=== PATIENT | female | born 1985 | race Caucasian/White ===

== ENCOUNTER → 2018-05-19 13:46 | Outpatient (CLI) | payer BC, SELFPAY ==
[2018-05-19 14:28] LABS: Add Manual Diff / Slide Review NO; Basophils Absolute Auto 0 /uL (0-100); Basophils Percent Auto 0.2 % (0-2); Eosinophils Absolute Auto 0 /uL (0-450); Eosinophils Percent Auto 0.4 % (2-4); Hematocrit 39.7 % (36-46); Hemoglobin 13.7 g/dL (12.0-16.0); Lymphocytes Absolute Auto 1600 /uL (1100-4500); Lymphocytes Percent Auto 17.1 % (25-40); Mean Corpuscular HGB Conc 34.4 % (30-36); Mean Corpuscular Hemoglobin 31.4 PG (26-34); Mean Corpuscular Volume 91.3 fL (80-100); Monocytes Absolute Auto 500 /uL (0-900); Monocytes Percent Auto 5.5 % (3-14); Neutrophils Absolute Auto 7400 /uL (1500-7000); Neutrophils Percent Auto 76.8 % (50-75); Platelet Count 301 X10^3/uL (150-400); Red Blood Cell Count 4.35 X10^6/uL (4.0-5.2); Red Cell Distribution Width 14.5 % (11.6-14.8); White Blood Cell Count 9.6 X10^3/uL (4.5-11.0)
[2018-05-19 17:05] LABS: Appearance Urine UA CLEAR; Bilirubin Urine UA NEGATIVE (NEGATIVE); Color Urine UA YELLOW; Glucose Urine UA NEGATIVE (Negative); Ketones Urine UA NEGATIVE (NEGATIVE); Leukocyte Esterase Urine UA NEGATIVE (NEGATIVE); Nitrite Urine UA NEGATIVE (Negative); Occult Blood Urine UA NEGATIVE (Negative); Protein Urine UA NEGATIVE (Negative); Specific Gravity Urine UA <=1.005 (1.000-1.035); Urobilinogen Urine UA 0.2 E.U./dL (0.2); pH Urine UA 6.5 (4.5-8.0)
[2018-05-19 17:55] LABS: Hepatitis B Surface Antigen NEGATIVE s/c (NEGATIVE); Rubella Antibody IgG 42.2 IU/mL (>15)
[2018-05-19 18:12] LABS: HIV 1 and 2 Antibody NEGATIVE (NEGATIVE); Hep C Virus Ab w/Reflex Quant NEGATIVE s/c (NEGATIVE)
[2018-05-21 15:33] LABS: RPR Screen Nonreactive (Nonreactive)
[2018-05-23 21:06] LABS: Brief History NTD NO; Calc Gestational Age 18.1; Cigarette Smoker NO; Donated Egg NG; Donor Egg Age NG; Inhibin A, Dimeric 150 pg/mL; Maternal Weight 160 lbs; Number of Fetuses NG; Previous Pregnancy Down Syndro NG; hCG, MoM 1.54
== END ==
PROVIDERS: PCP Registered Nurse; Visit Provider Obstetrics & Gynecology
DX: Z34.82 Encounter for supervision of other normal pregnancy, second trimester (principal); Z3A.18 18 weeks gestation of pregnancy
CPT/HCPCS: 36415; 80055; 81003; 82105; 82677; 84702; 86336; 86703; 86787; 86803; 86850; 86900; 86901; 87086

== ENCOUNTER → 2018-05-30 07:42 | Outpatient (CLI) | payer BC, SELFPAY ==
--- NOTE | 2018-05-30 07:43 | DI.US.S_ITS ---
PROCEDURE: US OB >= 14 WEEKS FETUS INDICATIONS: Anatomy Survey OUTSIDE/PRIOR DATING DATA: Last menstrual period (LMP): 01/12/18. LMP-based estimated date of delivery (ADRIANA): 10/19/18. First dating scan (date and location): Dr. Underwood's office, 03/15/18. Estimated date of delivery (ADRIANA) from first dating scan: 10/19/18. TECHNIQUE: Real-time scanning was performed of the fetus, with image documentation and biometric measurements. COMPARISON: [facility], , OB >= 14 WEEKS FETUS, 05/19/2018, 13:28. [facility], , OB <= 14 WEEKS FETUS, 03/15/2018, 16:14. FINDINGS: General: A single live intrauterine gestation is present. Presentation: Vertex. Placenta: Placental position is anterior, without previa. Amniotic fluid index: Not measured, but within normal limits by visual inspection heart rate: 150 beats per minute. Maternal cervical canal: 3.6 cm cm long. Normal lower limit is 2.5 cm. biometrics: Biparietal diameter: 4.7 cm equals 20 weeks 1 day Head circumference: 17.2 cm equals 19 weeks 6 days Abdominal circumference: 15.4 cm equals 20 weeks 4 days Femur length: 3.2 cm equals 19 weeks 6 days Estimated gestational age from initial scan: 19 weeks 5 days Composite gestational age from present scan: 20 weeks 1 day Estimated weight and percentile: 338 g, 73rd percentile Measurement variability for biometric dating: +/- 7 days from 14 weeks to 15 weeks 6 days gestation, +/- 10 days from 16 weeks to 21 weeks 6 days gestation, +/- 2 weeks from 22 weeks to 27 weeks 6 days gestation, +/- 3 weeks for 28 weeks gestation or later. weight reference: 4500 g or EFW >90/95% is considered macrosomia or large for gestational age. EFW <10% is small for gestational age. EFW 5% or less is considered intra-uterine growth restriction. Anatomic survey: Neuro: Ventricles are non-dilated at less than 10 mm. Cisterna magna is normal at 3-11 mm. Cerebellum is normal in size and morphology. Nuchal skin fold: Normal at less than 6 mm between 14-21 weeks gestational age. Face: Nose and lips appear normal. The facial profile is well seen. Spine: No evidence for spina bifida. Heart: 4-chambered heart is present, with normal ventricular outflow tracts. Diaphragm: Diaphragm is intact. Stomach: Left-sided stomach is present. Kidneys: No hydronephrosis. Normal is less than 5 mm in 2nd trimester, less than 7 mm in 3rd trimester. Cord: 3-vessel cord has orthotopic insertion. Bladder: Normal in size. Extremities: All 4 extremities identified. IMPRESSION: Normal interval growth when compared to the prior ultrasound examination. The facial profile is not well-seen. No anatomic abnormalities are identified. Dictated by: Sam Steward M.D. on 05/30/2018 at 8:44 Approved by: Sam Steward M.D. on 05/30/2018 at 8:48
== END ==
PROVIDERS: PCP Registered Nurse; Visit Provider Obstetrics & Gynecology
DX: Z34.82 Encounter for supervision of other normal pregnancy, second trimester (principal); Z3A.20 20 weeks gestation of pregnancy
CPT/HCPCS: 76811

== ENCOUNTER → 2018-07-19 10:13 | Outpatient (CLI) | payer BC, SELFPAY ==
[2018-07-19 11:53] LABS: Hematocrit 38.6 % (36-46); Hemoglobin 13.5 g/dL (12.0-16.0)
[2018-07-19 12:17] LABS: GTT (PREG) 1 Hour PP 50gm Dose 98 mg/dL (76-139)
== END ==
PROVIDERS: PCP Registered Nurse; Visit Provider Obstetrics & Gynecology
DX: Z34.82 Encounter for supervision of other normal pregnancy, second trimester (principal)
CPT/HCPCS: 36415; 82950; 85014; 85018

== ENCOUNTER → 2018-09-14 14:30 | Outpatient (CLI) | payer BC, SELFPAY ==
[2018-09-15 13:32] LABS: Strep Grp B PCR NEG for Grp B Strep
== END ==
PROVIDERS: PCP Registered Nurse; Visit Provider Obstetrics & Gynecology
DX: Z34.83 Encounter for supervision of other normal pregnancy, third trimester (principal)
CPT/HCPCS: 87653

== ENCOUNTER 2018-09-29 16:43 | Outpatient (CLI) | payer BC, SELFPAY | END 2018-09-29 17:31 | disposition home or self-care (01) | LOC: OB 09-30 12:44 | PROVIDERS: PCP Registered Nurse; Visit Provider Obstetrics & Gynecology | DX: O36.8130 Decreased fetal movements, third trimester, not applicable or unspecified (principal); Z3A.37 37 weeks gestation of pregnancy; R10.2 Pelvic and perineal pain | CPT/HCPCS: 59025; G0378; G0379 ==

== ENCOUNTER 2018-10-07 17:20 | Outpatient (CLI) | payer BC, SELFPAY ==
--- NOTE | 2018-10-08 11:01 | PM.OBTRLD ---
Visit Information Visit Information Date of evaluation: 10/07/18 Primary OB Provider: Tere Underwood On-call OB Provider: Mimi Goodson Reason for Evaluation: Yes rule out labor Vital Signs Vital Signs: Blood pressure 118/79, pulse 88, temperature 36.3? [facility] Medical History (Updated 10/08/18 @ 11:05 by Mimi Goodson MD) Abnormal Pap smear of cervix (Chronic) Anxiety (Chronic 2002) Asthma (Chronic) Depression (Chronic ~1997) Heavy menstrual period (Chronic) Ovarian cyst (Chronic) Painful menstrual periods (Chronic) Surgical History (Updated 11/18/17 @ 14:33 by Fabby Brown) H/O LEEP (Resolved 03/01/15) History of loop electrosurgical excision procedure (LEEP) (Resolved 06/18/17) History of loop electrosurgical excision procedure (LEEP) (Resolved 03/01/15) [place] teeth removed (Resolved ~2007) Family History (Updated 11/18/17 @ 14:24 by Fabby Brown) Father Age: 63 Environmental allergies Grandmother Age: 81 Hypertension High cholesterol Mother Age: 58 Obesity Hypertension Sister Age: 28 Environmental allergies Ovarian cyst Sister Age: 33 Ovarian cyst Back pain Social History household members: spouse Smoking Status: Never smoker Social History household members: spouse Smoking Status: Never smoker Evaluation Evaluation Baseline heart rate: 125 Variability: Moderate (11-25) monitor accelerations: Present monitor decelerations: Absent Contraction Frequency (minutes): 7 Uterine Contraction Intensity: Mild Category of Tracing: I Cervical dilation (cm): 5 Diagnosis, Plan/Disposition Final Diagnosis (1) 38 weeks gestation of : Current Visit: No Status: Acute Plan/Disposition Plan: Patient with no significant contractions on the monitor and no change in cervix. Prodromal labor. Follow-up but routine OB appointment or return if contractions increase. OB Disposition: home
== END 2018-10-07 18:04 | disposition home or self-care (01) ==
LOC: OB 10-11 13:44
PROVIDERS: PCP Registered Nurse; Visit Provider Registered Nurse
DX: O47.1 False labor at or after 37 completed weeks of gestation (principal); Z3A.38 38 weeks gestation of pregnancy
CPT/HCPCS: 59025; G0378; G0379

== ENCOUNTER 2018-10-18 07:36 | Inpatient (IN) | payer BC, SELFPAY ==
[2018-10-18] MEDS: LACTATED RINGERS 1,000 ML 100 ML IV (08:00)
[2018-10-18 08:41] LABS: Add Manual Diff / Slide Review NO; Basophils Absolute Auto 0 /uL (0-100); Basophils Percent Auto 0.3 % (0-2); Eosinophils Absolute Auto 100 /uL (0-450); Eosinophils Percent Auto 0.8 % (2-4); Hematocrit 39.7 % (36-46); Hemoglobin 13.5 g/dL (12.0-16.0); Lymphocytes Absolute Auto 1800 /uL (1100-4500); Lymphocytes Percent Auto 15.5 % (25-40); Mean Corpuscular HGB Conc 34.1 % (30-36); Monocytes Absolute Auto 800 /uL (0-900); Monocytes Percent Auto 7.1 % (3-14); Neutrophils Absolute Auto 8700 /uL (1500-7000); Neutrophils Percent Auto 76.3 % (50-75); Platelet Count 332 X10^3/uL (150-400); Red Blood Cell Count 4.51 X10^6/uL (4.0-5.2); Red Cell Distribution Width 13.6 % (11.6-14.8); White Blood Cell Count 11.4 X10^3/uL (4.5-11.0)
[2018-10-18 09:12] VITALS: BP 111/70
[2018-10-18] MEDS: OXYTOCIN PREMIX 30 UNIT/500 ML PLAST..BAG IV (11:18)
--- NOTE | 2018-10-18 17:40 | PM.OBPRVD ---
Labor & Delivery Delivery date: 10/18/18 Intrapartal events: None Cervical ripening method: none Induction method: AROM Delivery augmentation: pitocin Delivery monitor: external FHT and external uterine Route of delivery: Episiotomy description: None L&D Laceration Description: None Estimated blood loss (mL): 100 Anesthesia type: Epidural Complications: None Narrative: The patient was complete and pushed with 5 contractions. At 4:22 p.m., a live female delivered spontaneously over an intact perineum. No nuchal cord. The remainder of the body delivered without difficulty and was placed on mom's abdomen. The cord was double clamped and cut. Cord bloods were obtained. Pitocin was given in the IV fluids. The placenta delivered intact with a 3 vessel cord at 4:27 p.m.. The fundus was massaged to firm. Estimated blood loss 100 cc. No lacerations. Apgars 9 at 1 min and 9 at 5 min. weight 8 lb 5.8 oz. Epidural analgesia. Mom and stable to recovery. Plan for aftercare: Routine care
--- NOTE | 2018-10-18 20:36 | P.HPOB_ITS ---
OB HPI Date/Time Date of admission: 10/18/18 Date Patient Seen: 10/18/18 Time Patient Seen: 07:45 History of Present Condition Chief complaint: OBS : 3 Para: 1 Estimated Date of Delivery: 10/19/18 Estimated Gestational Age (weeks): 39+ 6 Narrative: Harriett Jimenez is a 32 year old female 3 para 1 who presents for induction of labor Indications Indication for induction OB: maternal discomfort History of Present care: good care, initiated at week # (8), number of visits (11) and pounds weight gain (36) Dating criteria: LMP confirmed by 1st trimester US Ultrasounds: normal 1st trimester US and normal mid trimester US Obstetrical complications: none Medical complications: other (History of LEEP) Preadmission Labs Blood type: O (+) positive -: Antibody screen: negative, GBS status: negative, HBsAG: negative, HIV: negative and RPR/VDLR: negative -: Chlamydia screen: not detected and Gonorrhea screen: not detected -: Rubella: immune and Varicella: immune HCT: 38.6 HCAB: negative PAP: Abnormal Quad screen: Normal Urine: Negative 1 hr GTT: 98 Prior (ies) History: EAB Vacuum assisted vaginal delivery in 2017 without complication Evaluation Evaluation Baseline heart rate: 135 Variability: Moderate (11-25) monitor accelerations: Present monitor decelerations: Absent Category of Tracing: I Cervical dilation (cm): 5 Cervical effacement (%): 85 station: -1 Laboratory results: Laboratory Tests 10/18/18 10/18/18 08:20 08:20 WBC 11.4 H RBC 4.51 Hgb 13.5 Hct 39.7 MCV 88.0 MCH 30.0 MCHC 34.1 RDW 13.6 Plt Count 332 Neut % (Auto) 76.3 H Lymph % (Auto) 15.5 L [place] % (Auto) 7.1 Eos % (Auto) 0.8 L Baso % (Auto) 0.3 Neut # (Auto) 8700 H Lymph # (Auto) 1800 [place] # (Auto) 800 Eos # (Auto) 100 Baso # (Auto) 0 Blood Type O Positive Antibody Screen Negative [facility] Medical History (Updated 10/08/18 @ 11:05 by Mimi Goodson MD) Abnormal Pap smear of cervix (Chronic) Anxiety (Chronic 2002) Asthma (Chronic) Depression (Chronic ~1997) Heavy menstrual period (Chronic) Ovarian cyst (Chronic) Painful menstrual periods (Chronic) Surgical History (Updated 11/18/17 @ 14:33 by Fabby Brown) H/O LEEP (Resolved 03/01/15) History of loop electrosurgical excision procedure (LEEP) (Resolved 06/18/17) History of loop electrosurgical excision procedure (LEEP) (Resolved 03/01/15) [place] teeth removed (Resolved ~2007) Family History (Updated 11/18/17 @ 14:24 by Fabby Brown) Father Age: 63 Environmental allergies Grandmother Age: 81 Hypertension High cholesterol Mother Age: 58 Obesity Hypertension Sister Age: 28 Environmental allergies Ovarian cyst Sister Age: 33 Ovarian cyst Back pain Social History household members: spouse Smoking Status: Never smoker Social History household members: spouse Smoking Status: Never smoker Meds Home Medications and Allergies Home Medications Medication Instructions Recorded Confirmed Type PNV cmb#95-ferrous fumarate-FA 1 mg PO DAILY 06/18/17 04/12/18 History [] Allergies Allergy/AdvReac Type Severity Reaction Status Date / Time No Known Drug Allergies Allergy Verified 04/12/18 09:38 Exam Vital Signs (past 8 hours): Generally: Patient in no acute distress Lungs: Clear to auscultation bilaterally Cardiovascular: Regular rate and rhythm Fundal height: 41 cm Estimated weight: 8 lb Extremities: Negative Homans, no edema Objective Labs Result Diagrams: 10/18/18 08:20 Labs: Laboratory Results - last 24 hr 10/18/18 10/18/18 08:20 08:20 WBC 11.4 H RBC 4.51 Hgb 13.5 Hct 39.7 MCV 88.0 MCH 30.0 MCHC 34.1 RDW 13.6 Plt Count 332 Neut % (Auto) 76.3 H Lymph % (Auto) 15.5 L [place] % (Auto) 7.1 Eos % (Auto) 0.8 L Baso % (Auto) 0.3 Neut # (Auto) 8700 H Lymph # (Auto) 1800 [place] # (Auto) 800 Eos # (Auto) 100 Baso # (Auto) 0 Blood Type O Positive Antibody Screen Negative Assessment and Plan Assessment and Plan Assessment and Plan narrative: Assessment: 32-year-old 3 para 1 at 39-,6/7 weeks gestation with advanced cervical dilation for induction of labor Plan: AROM with copious amounts of clear amniotic fluid Pitocin augmentation as needed Epidural as necessary Expected management to spontaneous vaginal delivery Time Spent with Patient Total time spent with greater than 50% in coordination of care (as documented) at patient's floor/unit and/or counseling patient:: 15-24 minutes
[2018-10-18] MEDS: LANOLIN OINT 7 GM 1 APPLIC TOP (22:32)
[2018-10-18] MEDS: IBUPROFEN 600 MG TABLET PO (22:32)
[2018-10-18 23:27] VITALS: TEMP 36.8
[2018-10-18] MEDS: OXYCODONE/ACETAMINOPHEN 5/325 TABLET 1 TAB PO (23:27)
[2018-10-19] MEDS: OXYCODONE/ACETAMINOPHEN 5/325 TABLET 1 TAB PO (04:27)
[2018-10-19] MEDS: IBUPROFEN 600 MG TABLET PO ×2 (04:28→11:29)
[2018-10-19 07:06] LABS: Hemoglobin 12.6 g/dL (12.0-16.0)
[2018-10-19] MEDS: PRENATAL VIT,CALC/IRON/FOLIC 1 TABLET 1 TAB PO (09:40)
[2018-10-19] MEDS: DOCUSATE 250 MG CAPSULE PO (09:40)
[2018-10-19 15:22] VITALS: BP 114/71; PULSE 83; RESP 16; TEMP 37.1
--- NOTE | 2018-10-19 19:48 | P.DS_ITS ---
Discharge Providers Provider Date of admission: 10/18/18 07:36 Discharge Date: 10/19/18 Primary care physician: CESAR Doss Consults: 10/18/18 21:36 Consult to [employer] Routine Comment: Discharge provider: Tere Underwood MD Summary Hospital Course Date Patient Seen: 10/19/18 Time Patient Seen: 17:30 Procedures: Artificial rupture membranes Epidural analgesia Spontaneous vaginal delivery Hospital Course: Patient is a 32-year-old 3 para 1 who presented on 10/18/2018 for artificial rupture of membranes for induction of labor. She had copious amounts of clear amniotic fluid upon rupture. She did not develop a regular pattern of contractions and Pitocin augmentation was started. She progressed to complete dilation and had a fairly quick 2nd stage. She had a spontaneous vaginal delivery over an intact perineum. Her course was unremarkable. was going well. Bleeding was tapering. Pain was well controlled with ibuprofen. Peripartum Data Infant Delivery Method: Natural Vaginal Laceration description: None Episiotomy description: None Procedures: Artificial rupture of membranes Epidural analgesia Spontaneous vaginal delivery complications: none Status at Discharge Cognitive/behavioral status at discharge: oriented Functional status at discharge: independent ambulation Overall status at discharge: patient is progressing back to baseline Time Spent with Patient Time attestation: Total time spent providing and/or coordinating discharge se rvices: Time spent: Less than 30 minutes Objective Labs Result Diagrams: 10/19/18 06:20 Labs: Laboratory Results - last 24 hr 10/19/18 06:20 Hgb 12.6 Hct 38.0 Exam Vital Signs (past 8 hours): - 10/19/18 15:22 Temperature 98.8 F Pulse Rate 83 Respiratory Rate 16 Blood Pressure 114/71 Narrative Exam Narrative: Generally: Patient is standing and room, no acute distress Fundus: Firm at U -1 Extremities: Negative Homans, no edema Discharge Plan Discharge Plan Patient Disposition: Home Discharge comment: Call with fever, chills or bleeding vaginally more than a pad in an hour Discharge Med Rec/Prescriptions Prescriptions: Continued PNV cmb#95-ferrous fumarate-FA [] 28 mg iron- 800 mcg Tablet 1 mg PO DAILY RF: 0 Follow up/Referrals: Tere Underwood MD [Physician] - 6 Weeks (, Wednesday, November 29 at 2:00pm) Provider Discharge Instructions Diet: Regular Activity: No intercourse Skin/Wound/Dressing Care Report to your healthcare provider any signs of infection, such as:: chills, fever, increased pain and unusual drainage Visit Report/Discharge Packet Instructions: DI for Labor and Delivery, Vaginal Discharge Data Primary Care Provider: Gillian Corral Discharges patient from system. Discharge Date/Time: 10/19/18 18:09
== END 2018-10-19 18:09 | disposition home or self-care (01) | DRG 807 ==
PROVIDERS: Admitting Provider Obstetrics & Gynecology; PCP Registered Nurse; Visit Provider Obstetrics & Gynecology
DX: O75.81 Maternal exhaustion complicating labor and delivery (principal); Z37.0 Single live birth; Z3A.39 39 weeks gestation of pregnancy
CPT/HCPCS: 01967; 36415; 59050; 59400; 85014; 85018; 85025; 86850; 86900; 86901; G0379; J2590

== ENCOUNTER 2019-02-03 08:36 | Day surgery (SDC) | payer OTHER, SELFPAY ==
[2019-01-30 10:59] VITALS: BMI 25.7
[2019-02-03] VITALS (7 sets, daily range): BP systolic 85–112; BP diastolic 49–78; PULSE 30–63; RESP 11–21; TEMP 36.2–36.8; O2SAT 93–97; BMI 25.7
--- NOTE | 2019-02-03 | PATH_ITS ---
[facility] Accession Number: [id number] . 01 Material submitted: . cervix - ENDOCERVICAL BIOPSY, POSTERIOR LIP OF CERVIX, ANTERIOR LIP . 01 Clinical history: . PER SURGEON (DR. MEAD) ALL SPECIMENS SENT IN ONE CONTAINER - SEE UPDATED PATH SHEET ENDOCERVICAL BIOPSY LONG STITCH AT 12 O'CLOCK; POSTERIOR LIP OF CERVIX BIOPSY SHORT STITCH AT 6 O'CLOCK; ANTERIOR LIP OF CERVIX BIOPSY MEDIUM STITCH AT 12 O'CLOCK. . 02 Diagnosis: Endocervical Biopsy, Posterior Lip of Cervix, Anterior Lip of Cervix, LEEP Biopsies: . Piece #1, Endocervical Biopsy, Long Stitch at 12 o'clock, LEEP: Low-grade squamous intraepithelial lesion/NY-1 present as attached and detached squamous fragments. The intact margins appear negative for dysplasia. There is extensive mucosal erosion. Changes consistent with previous instrumentation are present. Negative for high-grade dysplasia or invasive tumor. Negative for p16 block immunostaining. . Piece #2 With Short Suture Designating 6 o'clock/Presumed Posterior Lip of Cervix, LEEP: Minute focus of high-grade squamous intraepithelial lesion/NY-2 involves a single gland neck in the 3-6 o'clock quadrant. Patchy regions of low-grade squamous intraepithelial lesion/NY-1 are present in the 3-6 o'clock and 6-9 o'clock quadrants. Low-grade squamous intraepithelial lesion/NY-1 focally involves a tissue margin, favor endocervical, in the 3-6 o'clock quadrant. Negative for invasive tumor. Negative for p16 block immunostaining. . Piece #3, Medium Suture At 12 o'clock, Presumed Anterior Lip of Cervix, LEEP: Attached and detached fragments of high-grade squamous intraepithelial lesion/NY-2 in the 9-12 o'clock and 12-3 o'clock quadrants with gland neck involvement present in the 12-3 o'clock quadrant. Patchy regions of low-grade squamous intraepithelial lesion/NY-1. The intact margins appear negative for dysplasia or malignancy. No invasive tumor identified. P16 block immunostaining is present. MRV 02/07/2019 1422 Local . 02 Comment: The biopsy results correlate with Pap smear [id number]. . 02 Electronically signed: . Porsche Davis MD, Pathologist NPI- [id number] . 01 Gross description: . Received in formalin, labeled endocervical Bx, long stitch @ 12 o'clock, posterior lip of cervix Bx, short stitch @ 6 o'clock, anterior lip of cervix Bx, median stitch @ 12 o'clock, are three pieces of cervical tissue. Piece #1 (3.5 x 1.2 x 0.2 cm) contains a long suture indicating 12 o'clock. The mucosa is bowen-pink, smooth, and shiny. No nodules, masses, or lesions are identified. The specimen cannot be oriented, therefore the resection margin is inked blue. Serially sectioned and entirely submitted in cassettes A1-A3. . Piece #2 (2.0 x 1.0 x 0.5 cm) contains a short suture designating 6 o'clock. The mucosa is bowen-white, smooth, and shiny. No nodules, masses, or lesions are identified. The possible endocervical margin is inked orange, and the possible ectocervical and stromal margins are inked blue. Serially sectioned and entirely submitted right to left, presumably 3-9 o'clock based on location of the suture, as follows: (A4) 3-6 o'clock; (A5) 6-9 o'clock. . Piece #3 (2.5 x 0.9 x 0.3 cm) contains a medium suture indicating 12 o'clock. The mucosa is bowen-pink, smooth, and shiny. The possible endocervical margin is inked orange, and the possible ectocervical and stromal margins are inked blue. No nodules, masses, or lesions are identified. Serially sectioned and entirely submitted in left to right, presumably 9-3 o'clock based on the location of the suture, as follows: (A6) 9-12 o'clock; (A7) 12-3 o'clock. ([id number]) /BRIDGETTE 02/04/2019 0954 Local . 02 Microscopic: . An immunohistochemical stain for p16 is performed on block A7 to evaluate for block reactivity and is positive for block immunostaining. . Block A7: P16 block immunostaining supports the presence of high-risk HPV DNA in this biopsy. The control stained with appropriate reactivity. . Blocks A1 through A6 are negative for block immunostaining. . Blocks A1-6: The absence of p16 block immunostaining mitigates against the presence of high-risk HPV DNA in this tissue. . * This test was developed and its performance characteristics determined by [facility]. It has not been cleared or approved by the U.S. Food and Drug Administration. The FDA has determined that such clearance or approval is not necessary. This test is used for clinical purposes. It should not be regarded as investigational or for research. . 02 Pathologist provided ICD-10: N87.1 . 02 CPT . 083261, V58191, W54145 Performed at: 01 [facility] [address] [id number] MD Les Montenegro MD Phone: [phone] Performed at: 02 [facility] [address] [place] [id number] MD Jessica Rubin MD Phone: [phone]
[2019-02-03] MEDS: LACTATED RINGERS 1,000 ML 100 ML IV (09:09)
--- NOTE | 2019-02-03 09:25 | SUR.OPER ---
Lithotomy on padded OR bed, head on pillow, arms secured on padded arm boards at <90 degrees abduction. Legs secured in padded yellow fins stirrups.
--- NOTE | 2019-02-03 10:15 | PM.PREOP ---
Pre-operative Note Interval Note History & Physical reviewed/Exam performed by Physician: Yes Changes to H&P: No
--- NOTE | 2019-02-03 11:30 | SUR.PHASEII ---
Discharged patient home in stable condition with father. No prescriptions given. VSS.
--- NOTE | 2019-02-07 13:54 | P.HP_ITS ---
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 (Acute) Depression (Chronic ~1997) Heavy menstrual period (Chronic) Ovarian cyst (Chronic) Painful menstrual periods (Chronic) Surgical History (Updated 11/18/17 @ 14:33 by Fabby Brown) H/O LEEP (Resolved 03/01/15) History of loop electrosurgical excision procedure (LEEP) (Resolved 06/18/17) History of loop electrosurgical excision procedure (LEEP) (Resolved 03/01/15) [place] teeth removed (Resolved ~2007) Family & Social History Social History: household members spouse,children Tobacco & Substance use: Smoking Status Never smoker alcohol intake former Substance Use Type does not use Meds Home Medications and Allergies Home Medications Medication Instructions Recorded Confirmed Type PNV cmb#95-ferrous fumarate-FA 1 mg PO DAILY 06/18/17 02/03/19 History [] citalopram 10 mg tablet 10 mg PO DAILY #30 tab 12/30/18 02/03/19 Rx Allergies Allergy/AdvReac Type Severity Reaction Status Date / Time No Known Drug Allergies Allergy Verified 02/03/19 09:08 Exam Vital Signs (past 8 hours): Oxygen Delivery Method Room Air Narrative Exam Narrative: HEENT: No thyromegaly, no anterior cervical or supraclavicular lymphadenopathy. Lungs:Clear to auscultation bilaterally, no wheezes. Cardiovascular: Regular rate and rhythm, no murmurs, rubs, or gallops. Abdomen: No scars. No hepatosplenomegaly. No masses palpable. External genitalia: Normal Vagina: Normal Cervix: Status post LEEP Bimanual exam: 6 Week size uterus. Mobile. Rectal: No masses. Assessment & Plan Assessment and plan (1) NY III (cervical intraepithelial neoplasia grade III) with severe dysplasia: Current visit: No Status: Acute Assessment & Plan narrative: Assessment: 33-year-old with NY 2 by colposcopic biopsy Plan: LEEP cone biopsy of the cervix The risks, benefits, and alternatives to the procedure were explained to the patient. The risks including bleeding, infection, and cervical incompetence. She understands these risks and agrees to proceed. A full par Q was held and consent form was signed. Time Spent With Patient Time with patient: 15-24 minutes
--- NOTE | 2019-02-07 13:57 | PM.GYNOP.1 ---
Operative Date/Time/Diagnoses Date of procedure: 02/03/19 Time of procedure: 10:45 Pre-op diagnosis: NY 2 Post-op diagnosis: same Procedure & Clinicians Procedure: Procedures Operation Date: 02/03/19 09:45 Actual Procedures Side Surgeon p Leep Cone BX of Cervix Tere Underwood MD Indications: NY 2 by colposcopic biopsy Surgeon: Tere Underwood Anesthesia Type: General Operative Notes Findings: Lugol's light areas surrounding the cervical os Closure Type: not applicable Specimen(s): uterine contents and other (LEEP cone biopsy of the cervix) Estimated blood loss (mL): 10 Blood products transfused: none Procedure in detail: After informed consent was obtained, the patient was taken to the operating room where she was placed in the dorsal supine position. After adequate LMA general anesthesia was achieved, she was placed in the dorsal lithotomy position, and prepped and draped in the usual sterile fashion. A time-out was performed. A plastic coated bivalve speculum was placed into the vagina. A plastic coated single-tooth tenaculum was placed on the anterior lip of the cervix. Using the 15 mm loop, a LEEP cone biopsy was performed with settings at 60 cut and 40 cautery. Hemostasis was achieved with the Bovie. The specimen was tagged at the 12 o'clock position with a long suture, and 6 o'clock position with a short suture. The endocervical component was tagged with a medium suture. Hemostasis was achieved. The plastic coated single-tooth tenaculum was removed from the anterior lip of the cervix. The plastic coated bivalve speculum was removed from the vagina. Sponge, lap, and instrument counts were correct x2. The patient tolerated the procedure well, and was taken to PACU in stable condition. Complications: none Post-operative Condition: stable Disposition: PACU Plan for aftercare: Home after recovery
== END 2019-02-03 11:30 | disposition home or self-care (01) ==
PROVIDERS: PCP Registered Nurse; Visit Provider Obstetrics & Gynecology
PROC: 0UBC7ZZ Excision of Cervix, Via Natural or Artificial Opening (ICD-10-PCS; CPT 57522; principal; 2019-02-03 09:45)
DX: N87.1 Moderate cervical dysplasia (principal); F41.9 Anxiety disorder, unspecified; J45.909 Unspecified asthma, uncomplicated; F32.9 Major depressive disorder, single episode, unspecified
CPT/HCPCS: 57522; J1100; J1885; J2250; J2405; J2704; J3010

== ENCOUNTER 2020-11-02 09:11 | Emergency (ER) | payer OTHER, SELFPAY ==
--- NOTE | 2020-11-02 09:18 | DI.RAD.S_ITS ---
PROCEDURE: XR CHEST 1V INDICATIONS: chest pain TECHNIQUE: One view of the chest was acquired. COMPARISON: None. FINDINGS: Surgical changes and devices: None. Lungs and pleura: Lungs are clear. No pleural effusions or pneumothorax. Mediastinum: Mediastinal contours appear normal. Heart size is normal. Bones and chest wall: No suspicious bony lesions. Overlying soft tissues appear unremarkable. IMPRESSION: Normal portable chest. Dictated by: Sam Steward M.D. on 11/02/2020 at 8:35 Approved by: Sam Steward M.D. on 11/02/2020 at 8:36
[2020-11-02 09:20] VITALS: BP 147/65; PULSE 71; RESP 18; TEMP 36.3; O2SAT 99; BMI 23.5
[2020-11-02] MEDS: SODIUM CHLORIDE 0.9% 1,000 ML 1000 ML IV (09:45)
--- NOTE | 2020-11-02 09:46 | ED_ITS ---
HPI - Dizziness General Chief Complaint: Dizziness Stated Complaint: nausea/vertigo/can't open her eyes Time Seen by Provider: 11/02/20 09:22 History of Present Illness HPI Narrative: Patient is a 34-year-old female who presents with dizziness which started yesterday. She states that they were [place] on [place] [address] she thought that she was car sick feeling extremely nauseous. However it has only gotten worse today. She says it hurts to open her eyes she feels like her eyes hurt she has a mild headache. She is nauseous but no vomiting. No numbness tingling or weakness. No chest pain palpitations or shortness of breath. No prior history of vertigo. Related Data Home Medications Medication Instructions Recorded Confirmed vit no.95-ferrous 1 mg PO DAILY 06/18/17 05/28/20 fumarate 28 mg-folic acid 800 mcg tablet () Previous Rx's Medication Instructions Recorded levonorgestrel-ethinyl estradiol 1 tab PO DAILY #84 tab 01/25/20 0.1 mg-20 mcg tablet hydroxyzine HCl 25 mg tablet 25 mg PO QID PRN #30 tab 05/28/20 sertraline 50 mg tablet 50 mg PO DAILY #60 tab 05/28/20 meclizine 25 mg tablet 25 mg PO TID PRN #10 tab 11/02/20 ondansetron 4 mg disintegrating 4 mg PO Q8H PRN #10 tab 11/02/20 tablet Allergies Allergy/AdvReac Type Severity Reaction Status Date / Time No Known Drug Allergies Allergy Verified 05/28/20 10:24 Review of Systems Review of Systems Narrative: GENERAL: Denies chills, fatigue, malaise, fever, sweats, travel HEENT: Denies sinus pain, ear pain, sore throat, difficulty swallowing, neck pain RESPIRATORY: Denies dyspnea, cough, wheezing, hemoptysis, sputum. CARDIOVASCULAR: Denies chest pain, palpitations, orthopnea, edema GASTROINTESTINAL: See HPI : Denies dysuria, frequency, incontinence, hematuria, urinary retention, flank pain. MUSCULOSKELETAL: Denies weakness, joint pain, or bony pain SKIN: No rash, no erythema, no pruritus NEUROLOGIC: See HPI PSYCHIATRIC: No concerning psychosocial issues. 12 point review of systems is negative except for those stated above and HPI Patient History Medical History Abnormal Pap smear of cervix Anxiety (2002) Asthma [place] III (cervical intraepithelial neoplasia grade III) with severe dysplasia Contraceptive management Depression (~1997) Heavy menstrual period Ovarian cyst Painful menstrual periods Surgical History H/O LEEP (03/01/15) History of loop electrosurgical excision procedure (LEEP) (06/18/17) History of loop electrosurgical excision procedure (LEEP) (03/01/15) [place] teeth removed (~2007) Family History Father Age: 65 Environmental allergies Grandmother Age: 83 Hypertension High cholesterol Mother Age: 60 Obesity Hypertension Sister Age: 30 Environmental allergies Ovarian cyst Sister Age: 35 Ovarian cyst Back pain Social History household members: spouse and children Smoking Status: Never smoker alcohol intake: former Smoking Status: Never smoker Substance Use Type: does not use Exam Initial Vital Signs Initial Vital Signs: Vital Signs Temperature 97.3 F L 11/02/20 09:20 Pulse Rate 71 11/02/20 09:20 Respiratory Rate 18 11/02/20 09:20 Blood Pressure 147/65 H 11/02/20 09:20 Pulse Oximetry 99 11/02/20 09:20 GENERAL: Lying with eyes closed alert 34-year-old female HEENT: Head atraumatic,EOMI, pupils reactive, face symmetric, no nystagmus moist mucous membranes CARDIOVASCULAR: Regular rate and rhythm without murmurs, rubs or gallops. RESPIRATORY: Breath sounds equal bilaterally, no wheezes rales or rhonchi. ABDOMEN: Soft, nontender. Normoactive bowel sounds all 4 quadrants. No guarding or rebound. EXTREMITIES: Normal range of motion, no clubbing or edema. Neurovascularly intact NEUROLOGICAL: Alert and oriented x4.Normal gait and speech. Cranial nerves II through XII grossly intact. Good [id number], good [id number], strength equal bilaterally, no dysarthria or aphasia, sensation in tact to soft touch bilaterally, no visual changes, no facial droop SKIN: Warm, dry, no laceration, no petechiae, no rashes or lesions. Scores NIH Stroke Scale Level of Conciousness: Alert, keenly responsive Ask month/age: Answers both questions correctly. Open/close eyes, close hand: Performs both tasks correctly Best gaze horizontal: Normal Visual pro: No visual loss Facial palsy: Normal symetrical movement Left arm drift: No drift for full 10 sec Right arm drift: No drift for full 10 sec Left leg drift: No drift for full 5 sec Right leg drift: No drift for full 5 sec Limb ataxia: Absent Sensory on face/arms/legs: Normal, no sensory loss Best language: No aphasia, normal Dysarthria: Normal Extinction or inattention: No abnormality Total NIH Stroke scale score: 0 Course Orders Ordered: ED Orders 11/02/20 09:33 EKG-12 Lead Stat 11/02/20 09:40 Complete Blood Count AUTO DIFF Stat Comprehensive Metabolic Panel Stat Lipase Stat Test Serum,Qual Stat Troponin & CK Cardiac Panel Stat 11/02/20 09:47 CT head/brain wo con Stat Discontinued Medications Sodium Chloride (Normal Saline 0.9%) 1,000 mls @ 1,000 mls/hr IV BOLUS ONE Stop: 11/02/20 10:43 Last Infusion: 11/02/20 11:03 Dose: 0 mls/hr Documented by: Admin: 11/02/20 09:45 Dose: 1,000 mls/hr Documented by: OFELIA Sodium Chloride (Normal Saline 0.9%) 1,000 mls @ 1,000 mls/hr IV BOLUS ONE Stop: 11/02/20 10:46 Last Admin: 11/02/20 11:02 Dose: Not Given Documented by: OFELIA Meclizine HCl (Meclizine Hcl 12.5 Mg Tablet) 50 mg PO NOW ONE Stop: 11/02/20 09:48 Last Admin: 11/02/20 10:01 Dose: 50 mg Documented by: OFELIA Ondansetron HCl (Ondansetron 4 Mg/2 Ml Inj) 4 mg IV NOW ONE Stop: 11/02/20 09:45 Last Admin: 11/02/20 09:54 Dose: Not Given Documented by: OFELIA Ondansetron HCl (Ondansetron 4 Mg/2 Ml Inj) 4 mg IV NOW ONE Stop: 11/02/20 09:48 Last Admin: 11/02/20 11:00 Dose: Not Given Documented by: OFELIA Vital Signs Vital signs: Vital Signs - 8 hr 11/02/20 10:57 11/02/20 11:00 11/02/20 11:08 Pulse Rate 66 64 63 Respiratory Rate 9 L 15 14 Blood Pressure 112/81 149/63 H Pulse Oximetry 99 99 99 11/02/20 11:30 11/02/20 11:41 Pulse Rate 64 64 Respiratory Rate 18 Blood Pressure 107/73 107/73 Pulse Oximetry 98 98 MDM - Dizziness Lab Data Result diagrams: 11/02/20 09:40 11/02/20 09:40 Labs: Lab Results 11/02/20 11/02/20 11/02/20 Range/Units 09:40 09:40 09:40 WBC 3.0 L (4.5-11.0) X10^3/uL RBC 4.54 (4.0-5.2) X10^6/uL Hgb 14.1 (12.0-16.0) g/dL Hct 41.4 (36-46) % MCV 91.1 (80-100) fL MCH 30.9 (26-34) PG MCHC 34.0 (30-36) % RDW 12.9 (11.6-14.8) % Plt Count 230 (150-400) X10^3/uL Neut % (Auto) 40.9 L (50-75) % Lymph % (Auto) 44.1 H (25-40) % [place] % (Auto) 13.1 (3-14) % Eos % (Auto) 1.6 L (2-4) % Baso % (Auto) 0.3 (0-2) % Neut # (Auto) 1200 L (1750-0250) /uL Lymph # (Auto) 1300 (2991-2867) /uL [place] # (Auto) 400 (0-900) /uL Eos # (Auto) 0 (0-450) /uL Baso # (Auto) 0 (0-100) /uL Sodium 139 (137-145) mmol/L Potassium 4.1 (3.4-5.1) mmol/L Chloride 107 (98-107) mmol/L Carbon Dioxide 27 (22-32) mmol/L BUN 10 (7-17) mg/dL Creatinine 0.64 (0.52-1.04) mg/dL Estimated GFR > 60.0 (>60) mL/min BUN/Creatinine Ratio 15.6 (6-22) Glucose 98 (70-100) mg/dL Calcium 8.8 (8.4-10.2) mg/dL Total Bilirubin 0.5 (0.2-1.3) mg/dL AST 24 (14-36) IU/L ALT 15 (<35) IU/L Alkaline Phosphatase 57 (38-126) U/L Total Creatine Kinase 42 (30-135) U/L CK-MB (CK-2) TNP CK-MB (CK-2) Rel Index TNP Troponin I < 0.012 (0.01-0.034) ng/mL Total Protein 7.2 (6.3-8.2) g/dL Albumin 4.1 (3.5-5.0) g/dL Globulin 3.1 (1.7-4.1) g/dL Albumin/Globulin Ratio 1.3 (1.0-2.8) Lipase 31 (23-300) U/L Serum , Qual Negative (Negative) Urine Dip Bedside Urine Glucose Negative Bedside Urine Bilirubin - Negative Bedside Urine Ketone - Negative Urine Specific [place] 1.025 Bedside Urine Occult Blood + Bedside Urine pH 6.0 Bedside Urine Protein - Negative Bedside Urine Urobilinogen 0.2 Bedside Urine Nitrite - Negative Bedside Urine Leukocytes - Negative Esterase Imaging Data CT scan - head: Radiologist's Impression: PROCEDURE:? CT HEAD/BRAIN WO CON ? INDICATIONS:? dizzy ? TECHNIQUE:? Noncontrast 4.5 mm thick angled axial sections acquired from the foramen magnum to the vertex, with coronal and sagittal reformats.? For radiation dose reduction, the following was used:? automated exposure control, adjustment of mA and/or kV according to patient size.? ? COMPARISON:? [facility], CR, XR CHEST 1V, 11/02/2020, 9:20. ? FINDINGS:? Image quality:? Excellent.? ? CSF spaces:? Basal cisterns are patent.? No extra-axial fluid collections.? Ventricles are normal in size and shape.? ? Brain:? No midline shift.? No intracranial masses or hemorrhage.? Hammonds-white matter interface is normal.? ? Skull and face:? Calvarium and visualized facial bones are intact, without s uspicious lesions.? ? Sinuses:? There is an air-fluid level seen within the left maxillary sinus.? The paranasal sinuses are otherwise clear. ? IMPRESSION:? ? No acute intracranial process is seen.? ? Air-fluid level noted within the left maxillary sinus, which can imply sinusitis.? Please correlate with known patient history. ? ? Dictated by: Sam Steward M.D. on 11/02/2020 at 9:21 ? ? Approved by: Sam Steward M.D. on 11/02/2020 at 9:22 ? ECG Data Interpretation: Normal sinus rhythm rate 62 PA interval 146 S QRS [address] changes MDM Narrative Medical decision making narrative: The patient is having symptoms consistent with vertigo. She has no neurologic deficits. Head CT and blood work is overall reassuring she feeling much better after meclizine. She is able to open her eyes and have a conversation. She was able to ambulate to the restroom. At this time unlikely to be posterior stroke. Discharge Plan Departure Patient Disposition: Home Clinical Impression: Benign paroxysmal positional vertigo Qualifiers: Laterality: unspecified laterality Qualified Code(s): H81.10 - Benign paroxysmal vertigo, unspecified ear Instructions: Benign Paroxysmal Positional Vertigo Activity Restrictions/Additional Instructions: *You have been diagnosed with vertigo *What to do: At this time blood work and CT scan are overall reassuring. This should spontaneously improved. Increase fluid intake as tolerated. Rest as needed. *Continue to take medications as directed--> SENT TO [facility] Zofran 4 mg every 6-8 hours if needed for nausea vomiting Meclizine 25 mg every 8 hours as needed for dizziness *Follow up with your primary care provider in 2-3 days *Return to ER if you should have fever dizziness, weakness, numbness or tingling or persistent vomiting or any new, worsening or concerning symptoms Prescriptions: New meclizine 25 mg tablet 25 mg PO TID PRN (Reason: dizziness) Qty: 10 RF: 0 ondansetron 4 mg tablet,disintegrating 4 mg PO Q8H PRN (Reason: nausea and vomiting) Qty: 10 RF: 0 No Action levonorgestrel-ethinyl estrad 0.1-20 mg-mcg tablet 1 tab PO DAILY Qty: 84 RF: 1 sertraline 50 mg tablet 50 mg PO DAILY Qty: 60 RF: 1 hydroxyzine HCl 25 mg tablet 25 mg PO QID PRN (Reason: anxiety) Qty: 30 RF: 1 PNV cmb#95-ferrous fumarate-FA [] 28 mg iron- 800 mcg Tablet 1 mg PO DAILY RF: 0 Referrals: Jeanmarie Goins ARNP [Primary Care Provider] -
--- NOTE | 2020-11-02 09:47 | DI.CT.S_ITS ---
PROCEDURE: CT HEAD/BRAIN WO CON INDICATIONS: dizzy TECHNIQUE: Noncontrast 4.5 mm thick angled axial sections acquired from the foramen magnum to the vertex, with coronal and sagittal reformats. For radiation dose reduction, the following was used: automated exposure control, adjustment of mA and/or kV according to patient size. COMPARISON: [facility], CR, XR CHEST 1V, 11/02/2020, 9:20. FINDINGS: Image quality: Excellent. CSF spaces: Basal cisterns are patent. No extra-axial fluid collections. Ventricles are normal in size and shape. Brain: No midline shift. No intracranial masses or hemorrhage. Hammonds-white matter interface is normal. Skull and face: Calvarium and visualized facial bones are intact, without suspicious lesions. Sinuses: There is an air-fluid level seen within the left maxillary sinus. The paranasal sinuses are otherwise clear. IMPRESSION: No acute intracranial process is seen. Air-fluid level noted within the left maxillary sinus, which can imply sinusitis. Please correlate with known patient history. Dictated by: Sam Steward M.D. on 11/02/2020 at 9:21 Approved by: Sam Steward M.D. on 11/02/2020 at 9:22
[2020-11-02 09:52] LABS: Add Manual Diff / Slide Review NO; Basophils Absolute Auto 0 /uL (0-100); Basophils Percent Auto 0.3 % (0-2); Eosinophils Absolute Auto 0 /uL (0-450); Eosinophils Percent Auto 1.6 % (2-4); Hematocrit 41.4 % (36-46); Hemoglobin 14.1 g/dL (12.0-16.0); Lymphocytes Absolute Auto 1300 /uL (1100-4500); Lymphocytes Percent Auto 44.1 % (25-40); Mean Corpuscular Hemoglobin 30.9 PG (26-34); Mean Corpuscular Volume 91.1 fL (80-100); Monocytes Absolute Auto 400 /uL (0-900); Monocytes Percent Auto 13.1 % (3-14); Neutrophils Absolute Auto 1200 /uL (1500-7000); Neutrophils Percent Auto 40.9 % (50-75); Platelet Count 230 X10^3/uL (150-400); Red Blood Cell Count 4.54 X10^6/uL (4.0-5.2); Red Cell Distribution Width 12.9 % (11.6-14.8)
[2020-11-02] MEDS: MECLIZINE HCL 12.5 MG TABLET 50 MG PO (10:01)
[2020-11-02 10:04] LABS: Pregnancy Test Serum,Qual Negative (Negative)
[2020-11-02 10:13] LABS: Alanine Aminotransferase 15 IU/L (<35); Albumin 4.1 g/dL (3.5-5.0); Albumin Globulin Ratio 1.3 (1.0-2.8); Alkaline Phosphatase 57 U/L (38-126); Aspartate Aminotransferase 24 IU/L (14-36); BUN Creatinine Ratio 15.6 (6-22); Bilirubin Total 0.5 mg/dL (0.2-1.3); Blood Urea Nitrogen 10 mg/dL (7-17); Calcium 8.8 mg/dL (8.4-10.2); Carbon Dioxide 27 mmol/L (22-32); Chloride 107 mmol/L (98-107); Creatine Kinase 42 U/L (30-135); Estimated Glomerular Filt Rate > 60.0 mL/min (>60); Globulin 3.1 g/dL (1.7-4.1); Glucose 98 mg/dL (70-100); HEMOLYSIS < 15 (0-50); Lipase 31 U/L (23-300); Potassium 4.1 mmol/L (3.4-5.1); Sodium 139 mmol/L (137-145); Total Protein 7.2 g/dL (6.3-8.2)
[2020-11-02 10:25] LABS: Troponin I < 0.012 ng/mL (0.01-0.034)
[2020-11-02 10:57] VITALS: PULSE 66; RESP 9; O2SAT 99
[2020-11-02 11:00] VITALS: BP 112/81; PULSE 64; RESP 15; O2SAT 99
[2020-11-02 11:08] VITALS: BP 149/63; PULSE 63; RESP 14; O2SAT 99
--- NOTE | 2020-11-02 11:12 | PC.NURSE ---
Assist to bathroom, patient states no lightheaded, dizzy or weakness
[2020-11-02 11:30] VITALS: BP 107/73; PULSE 64; RESP 18; O2SAT 98
[2020-11-02 11:41] VITALS: BP 107/73; PULSE 64; O2SAT 98
== END 2020-11-02 12:03 | disposition home or self-care (01) ==
PROVIDERS: Emergency Provider Emergency Medicine; PCP Registered Nurse Diabetes Educator
DX: H81.10 Benign paroxysmal vertigo, unspecified ear (principal); R11.0 Nausea; R51.9 Headache, unspecified; R07.9 Chest pain, unspecified
CPT/HCPCS: 36415; 70450; 71045; 80053; 81003; 82550; 83690; 84484; 84703; 85025; 93005; 93010; 96360; 99284

== ENCOUNTER → 2021-09-08 14:29 | Outpatient (CLI) | payer OTHER, SELFPAY ==
--- NOTE | 2021-09-08 15:08 | DIET.CONS ---
Dietary Consultation Note Assessment: 35y F [address] visit for help with overweight and possible food sensitivities. Pt was 140# prior to second , was comfortable at this weight, currently 163#. Pt with new onset dermatitis in pubic area, scalp, and chin. Pt lives at home with and two kids, 5yo, and 3yo. Pts is gone every 5w. He does meal planning and cooking so when he is gone, sometimes dinner is cereal. Pt feels she is fueling with coffee and refined snacks, desires more structured eating as she has goal to run marathon before 39yo. Pt recently went on 6mi run and was shaky afterwards, thinks she did not fuel properly. Usual Day: wakes 7am alarm goes off to eat at 7am (but doesn't eat) son wakes up 8:30am drinks water 1/2gal/day 12oz cold brew with chocolate cold foam (190cal, 12g fat, 2g pro, 20g sugar) water- uses water jug with time markers Pt is a snacker- handful popcorn, goldfish, fruit, finishing kids meals needs to work on dinners- currently cooks protein and she makes sides. Ht: 5'7 Wt: 163# BMI: 25.5 UBW: 140# Nutrition Diagnosis: overweight r/t undesirable food choices and meal timing aeb pt +23# since before of second child, pt drinking sugar sweetened coffees daily, snacking with no meal time structure. Interventions: 1. Provided pt handouts on sports nutrition to support her as she starts training for marathon. 2. Set pts kcal and protein levels to support healthy weight loss of 1-2#/week. Aiming for 2 meals and 1-2 snacks daily. 3. Introduced pt to hunger scale- eat at 3 and stop at 8 to find meal composition and timing which supports health. EER: 1500-1600kcals, 75g PRO Monitoring/Evaluations: f/u in 6w to continue education and monitor weight. Electronically Signed by: Lizy Brandt 09/08/21 15:08 Clinical Dietitian [address] [id number]
[2021-09-08 15:58] VITALS: BMI 25.5
== END ==
PROVIDERS: PCP Registered Nurse Diabetes Educator; Referring Provider Registered Nurse Diabetes Educator; Visit Provider Registered Nurse Diabetes Educator
DX: E66.3 Overweight (principal); Z68.25 Body mass index [BMI] 25.0-25.9, adult; Z71.3 Dietary counseling and surveillance
CPT/HCPCS: 97802

== ENCOUNTER → 2021-10-02 11:01 | Outpatient (CLI) | payer OTHER, SELFPAY ==
[2021-10-02 12:14] LABS: Hematocrit 41.6 % (36-46); Hemoglobin 14.2 g/dL (12.0-16.0); Mean Corpuscular HGB Conc 34.1 % (30-36); Mean Corpuscular Hemoglobin 30.5 PG (26-34); Mean Corpuscular Volume 89.3 fL (80-100); Platelet Count 303 X10^3/uL (150-400); Red Blood Cell Count 4.66 X10^6/uL (4.0-5.2); Red Cell Distribution Width 13.2 % (11.6-14.8); White Blood Cell Count 9.1 X10^3/uL (4.5-11.0)
[2021-10-02 12:49] LABS: Alanine Aminotransferase 16 IU/L (<35); Albumin 4.4 g/dL (3.5-5.0); Albumin Globulin Ratio 1.5 (1.0-2.8); Alkaline Phosphatase 48 U/L (38-126); Aspartate Aminotransferase 22 IU/L (14-36); BUN Creatinine Ratio 14.5 (6-22); Bilirubin Total 0.7 mg/dL (0.2-1.3); Blood Urea Nitrogen 11 mg/dL (7-17); Calcium 9.2 mg/dL (8.4-10.2); Carbon Dioxide 27 mmol/L (22-32); Chloride 104 mmol/L (98-107); Cholesterol 159 mg/dL (140-199); Estimated Glomerular Filt Rate > 60 mL/min (>60); Globulin 2.9 g/dL (1.7-4.1); Glucose 92 mg/dL (70-100); HDL Cholesterol 62 mg/dL (40-60); HEMOLYSIS < 15 (0-50); LDL Cholesterol Calculated 87 mg/dL (<100); Potassium 4.4 mmol/L (3.4-5.1); Sodium 139 mmol/L (137-145); Total Protein 7.3 g/dL (6.3-8.2); Triglycerides 50 mg/dL (35-150)
[2021-10-02 13:59] LABS: TSH w/ Reflex to FT4 1.28 uIU/mL (0.47-4.68)
== END ==
PROVIDERS: PCP Registered Nurse Diabetes Educator; Referring Provider Registered Nurse Diabetes Educator; Visit Provider Registered Nurse Diabetes Educator
DX: Z00.00 Encounter for general adult medical examination without abnormal findings (principal); R53.83 Other fatigue
CPT/HCPCS: 36415; 80053; 80061; 84443; 85027

== ENCOUNTER 2021-12-27 09:14 | Emergency (ER) | payer OTHER, SELFPAY ==
[2021-12-27 09:53] VITALS: BP 135/95; PULSE 96; RESP 18; TEMP 36.4; O2SAT 98; BMI 25.0
[2021-12-27 12:51] LABS: Amorphous Sediment Urine 1+; Bacteria Urine None Seen; Culture Indicated Urine Cult Not Indicated; RBC Urine 0-1/HPF (0-5/HPF); Squamous Epithelial Cell Urine 1-5 /HPF (0-5/HPF); WBC Urine None Seen (0-5/HPF)
--- NOTE | 2021-12-27 13:10 | ED.FEMALEGU ---
HPI - Female Genitourinary General Chief complaint: Urogenital-Female Stated complaint: vaginal rash/irritation and pain Time Seen by Provider: 12/27/21 12:03 Source: patient Mode of arrival: Family Vehicle History of Present Illness HPI Narrative: This is a 36-year-old female who presents to the emergency department for perineal rash which started approximately 1 week ago and has progressed with multiple open sores. Patient states that she has been using preparation H for the last few days and this has been helpful. She denies fever, nausea vomiting, chills, states that 3 or 4 days ago she did not feel well and this is when she had bumps that were firm on her external genitalia and surrounding her anus. Patient states that she had intercourse with her 7 days ago, he left out of town and they did not have anal intercourse. She states that she had genital irritation and what she thought was raise her rash initially but it progressed with firm bump that were very painful. 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 She states that it has been itchy and painful With discharge Related Data Home Medications Medication Instructions Recorded Confirmed vit no.95-ferrous 1 mg PO DAILY 06/18/17 08/19/21 fumarate 28 mg-folic acid 800 mcg tablet () Previous Rx's Medication Instructions Recorded hydroxyzine HCl 25 mg tablet 25 mg PO QID PRN anxiety #30 tabs 05/28/20 meclizine 25 mg tablet 25 mg PO TID PRN dizziness #10 tabs 11/02/20 ondansetron 4 mg disintegrating 4 mg PO Q8H PRN nausea and 11/02/20 tablet vomiting #10 tabs sertraline 50 mg tablet 50 mg PO DAILY #60 tabs 12/25/20 ketoconazole 2 % shampoo 1 applic topical 2XW #120 mL 08/19/21 doxycycline hyclate 100 mg capsule 100 mg PO BID 5 days #10 caps 12/27/21 doxycycline hyclate 100 mg tablet 100 mg PO BID 10 days #20 tabs 12/27/21 hydrocortisone 2.5 % topical cream 1 applic topical BID PRN 12/27/21 itching/irritation #30 grams mupirocin 2 % topical ointment 1 applic topical BID #15 grams 12/27/21 zinc oxide 12 % topical cream 1 applic topical BEDTIME PRN skin 12/27/21 (Margaret Protect (zinc oxide)) irritation #57 grams Allergies Allergy/AdvReac Type Severity Reaction Status Date / Time No Known Drug Allergies Allergy Verified 12/27/21 09:53 Review of Systems Review of Systems Narrative: Review of systems is negative for acute abnormalities unless otherwise noted in HPI Patient History Medical History Abnormal Pap smear of cervix Anxiety (2002) Asthma [place] III (cervical intraepithelial neoplasia grade III) with severe dysplasia Contraceptive management Depression (~1997) Heavy menstrual period Ovarian cyst Painful menstrual periods Surgical History H/O LEEP (03/01/15) History of loop electrosurgical excision procedure (LEEP) (06/18/17) History of loop electrosurgical excision procedure (LEEP) (03/01/15) [place] teeth removed (~2007) Family History Father Age: 66 Environmental allergies Grandmother Age: 84 Hypertension High cholesterol Mother Age: 61 Obesity Hypertension Sister Age: 31 Environmental allergies Ovarian cyst Sister Age: 36 Ovarian cyst Back pain alcohol intake frequency: 0-2 drinks per day Substance Use Type: does not use Exam Narrative Exam Narrative: Reviewed vitals signs and nursing notes. General: cooperative, comfortable, in no acute distress, well groomed HEENT: symmetrical facial expressions, moist mucous membranes Cardiovascular: regular rate and rhythm, no peripheral edema, warm extremities Respiratory: normal effort, able to speak in complete sentences, without wheezing, stridor, or abnormal breath sounds. No retractions or tachypnea. GI: abdomen soft, nontender to palpation, nondistended, without masses, rebound tenderness or exquisite tenderness with exam. 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 Patient is on menses, without any intravaginal wounds, vaginal discharge and wounds were swabbed for cultures, HSV, chlamydia and gonorrhea. Skin: Pustular rash appears like folliculitis with discharge, it is thick and yellow white, appears bacterial and could be chlamydia. No bleeding, no hemorrhoids Neuro: normal speech and cognition, A&O x3, ambulatory, clear speech Psych: mental status is grossly normal, congruent mood, normal affect, pleasant and cooperative Initial Vital Signs Initial Vital Signs: Vital Signs Temperature 97.5 F L 12/27/21 09:53 Pulse Rate 96 H 12/27/21 09:53 Respiratory Rate 18 12/27/21 09:53 Blood Pressure 135/95 H 12/27/21 09:53 Pulse Oximetry 98 12/27/21 09:53 Oxygen Delivery Method 12/27/21 09:53 Course Course Course Narrative: [facility] CLIA ID [id number] [address] [place], [place] [id number] RUN DATE: 12/27/21 Specimen Inquiry PAGE 1 RUN TIME: 1518 Name: Harriett Jimenez Age/Sex: 36/F Attend Dr: Jessica Keen Unit#: [id number] : [id number]: ED Re12/27/21 Disch: Status: DEP ER SPEC #: [id number] ERIN: 12/27/21 STATUS: RES REQ #: [id number] SPDESC: RECD: 12/27/[address]: Jessica Keen SOURCE: Buttock ENTR: 12/27/[address]: Jeanmarie Goins FAX TO: ORDERED: WOUND Cx and GS COMMENTS: RASH ON THIGH/GROIN/BUTTOCKS Procedure Result Verified Site Gram Stain Final 12/27/21 White blood cells Moderate poly WBCs Gram Positive Cocci Scant Aerobic Culture for wounds Pending Anaerobic Culture Final 12/27/21 Test not performed Additional Information: [facility] CLIA ID [id number] [address] [place] [address], [address] RUN DATE: 12/27/21 Specimen Inquiry PAGE 1 RUN TIME: 1327 Name: Harriett Jimenez Age/Sex: 36/F Attend Dr: Jessica Keen Unit#: [id number] : [id number]: ED Re12/27/21 Disch: Status: REG ER SPEC #: [id number] ERIN: 12/27/21 STATUS: COMP REQ #: [id number] SPDESC: RECD: 12/27/[address]: Jessica Keen SOURCE: Vaginal ENTR: 12/27/[address]: Jeanmarie Goins FAX TO: ORDERED: Wet Prep Procedure Result Verified Site Wet Prep Tric BV Reva Final 12/27/21 White blood cells Few WBCs Clue cells: None seen Yeast: None seen Trichomonas: None seen Orders Ordered: ED Orders 12/27/21 11:55 Chlamydia Gonorrhea PCR -URINE Stat Urine Microscopic Stat 12/27/21 12:25 Wet Prep Tric BV Reva Stat 12/27/21 13:04 HSV 1/2 DNA PCR SWAB or BLOOD Stat Wound Culture and Gram Stain Stat 12/27/21 13:22 Chlamydia/Gonoc/Myco Genital Routine Discontinued Medications Bacitracin (Bacitracin Oint 0.9 Gm Pckt) 1 applic TOP NOW ONE Stop: 12/27/21 13:09 Last Admin: 12/27/21 13:43 Dose: 1 applic Documented By: ANNIKA Ceftriaxone Sodium (Ceftriaxone 1,000 Mg Vial) 500 mg IM NOW ONE Stop: 12/27/21 13:09 Last Admin: 12/27/21 13:58 Dose: 500 mg Documented By: ANNIKA Doxycycline Hyclate (Doxycycline Hyclate 100 Mg Tablet) 100 mg PO NOW ONE Stop: 12/27/21 13:09 Last Admin: 12/27/21 13:44 Dose: 100 mg Documented By: ANNIKA Ketorolac Tromethamine (Ketorolac 30 Mg/Ml Vial) 15 mg IM NOW ONE Stop: 12/27/21 13:10 Last Admin: 12/27/21 13:44 Dose: 15 mg Documented By: RLS Lidocaine HCl (Lidocaine 1% (Pf) 5 Ml) 2.1 ml INJ NOW ONE Stop: 12/27/21 13:09 Last Admin: 12/27/21 13:58 Dose: Not Given Documented By: RLS Vital Signs Vital signs: Vital Signs - 8 hr 12/27/21 09:53 12/27/21 13:45 Temperature 97.5 F L Pulse Rate 96 H 66 Respiratory Rate 18 Blood Pressure 135/95 H 121/77 Pulse Oximetry 98 98 Oxygen Delivery Method Room Air Room Air [facility] - Female Genitourinary Lab Data Labs: Lab Results 12/27/21 12/27/21 Range/Units 11:55 11:55 Urine RBC 0-1/hpf (0-5/HPF) Urine WBC None seen (0-5/HPF) Ur Squamous Epith Cells 1-5 /hpf (0-5/HPF) Amorphous Sediment 1+ Urine Bacteria None seen (None) Ur Culture Indicated? Cult not indicated Ur Chlamydia DNA (PCR) Detected H N gonorrhoeae DNA (PCR) Not detected Point of Care Testing Test Results Negative Urine Dip Bedside Urine Glucose Negative Bedside Urine Bilirubin - Negative Bedside Urine Ketone +/- 5 Urine Specific [place] 1.030 Bedside Urine Occult Blood ++ Bedside Urine pH 6.0 Bedside Urine Protein +/- 15 Bedside Urine Urobilinogen - Negative Bedside Urine Nitrite - Negative Bedside Urine Leukocytes - Negative Esterase MDM Narrative Medical decision making narrative: This is a 36-year-old female presents to the emergency department with a rash to her external vaginal and perineal region with open pustules which she states started as firm and red and was preceded by itching and now has yellowish discharge coming from them. One week ago she had intercourse with her , states that she had itching afterwards and then broke out in a rash all over the external genitalia. Patient is on her menses, wet prep is positive for wbc's only, gram stain to the external wounds is positive for GP sees and moderate poly wbc's, aerobic culture is pending. UA shows no bacteria, some sediment and 0-1 RBCs, urine chlamydia and gonorrhea tested positive for chlamydia only. Her HSV is still pending, patient was found with these results and a message was left. She was given 500 mg of IM ceftriaxone, doxycycline and given a prescription for up to 14 days to continue on the doxycycline with mupirocin ointment topically. She was given topical steroid to use as well for itching and erythematous rash. Discussed possibility of fungal rash but her g stain did not show this today. Encouraged her follow-up with a repeat exam or if she has any worsening. No peritoneal signs on abdominal exam. Patient remains p.o. tolerant. Serial abdominal exam without increase in abdominal pain. Given history and exam, low suspicion for acute abdominal process, such as acute cholecystitis, pancreatitis, perforated viscus, atypical appendicitis, colitis, diverticulitis or torsion. Extensive conversation about ER return precautions and need for close follow-up. Patient is appropriate and amenable to discharge home. Vital signs are stable on repeat examination is unremarkable. Patient has been informed of results. Patient has been given strict return to ER precautions for any new or worsening symptoms. Patient understands to follow up closely with outpatient providers as instructed. Patient understands plan and agrees to discharge home. All questions and concerns answered at this time. Discharge Plan Departure Patient Disposition: Home Clinical Impression: Rash of genital area, Bacterial folliculitis, Chlamydia infection Instructions: DI for Rash, Folliculitis Activity Restrictions/Additional Instructions: *You have been diagnosed with this is most likely bacterial folliculitis . Able take 2 days for the rest of those tests to come back. Please start this antibiotic, hopefully he will start feeling better soon. Please use something as a barrier, you may want to wear a pad with Vaseline on it so that it does not stick to everything and then use your creams. I gave you is inked base cream for the red inflammation, please use the topical antibiotic and a steroid cream as first-line, you can using occasionally in between. Use the hydrocortisone cream sparingly only once or twice a day for 5 days or so, the antibiotic ointment should clear up any bacterial component avoid getting it into the vagina. If you develop worsening rash or worsening illness, please go to a local emergency department and be racing, this could be fungal but it does not appear that way today. I hope you feel better soon. We will call you if the other tests are positive for something that you should need treatment for. *What to do: *Please continue to take your regular medications as directed. [x ] New medication prescriptions sent to your pharmacy: [[facility]] [ ] New medication written as a paper prescription [ ] No new medications given *Please follow up with your primary care provider in 2-3 days, call for an appointment. Let them know you were seen in the Emergency Department and that we asked that you be seen for follow-up. We will electronically transmit a record of today's note if your PCP is in our system *If you do not have a primary care provider please contact [phone] to establish care with one of the [facility] primary care providers. *Return to Emergency Department if you should have any new, worsening, or concerning symptoms, such as [fever greater than 101F, chills, worsening pain, persistent vomiting or other bothersome symptoms]. Prescriptions: New doxycycline hyclate 100 mg tablet 100 mg PO BID 10 Days Qty: 20 0RF mupirocin 2 % ointment 1 applic topical BID Qty: 15 0RF hydrocortisone 2.5 % cream 1 applic topical BID PRN (Reason: itching/irritation) Qty: 30 0RF Margaret Protect (zinc oxide) 12 % cream 1 applic topical BEDTIME PRN (Reason: skin irritation) Qty: 57 0RF doxycycline hyclate 100 mg capsule 100 mg PO BID 5 Days Qty: 10 0RF Rx Instructions: In addition to the other prescription a few still have symptoms No Action sertraline 50 mg tablet 50 mg PO DAILY Qty: 60 2RF Rx Instructions: After 1 week if no side effects increase to 2 tabs daily hydroxyzine HCl 25 mg tablet 25 mg PO QID PRN (Reason: anxiety) Qty: 30 1RF ketoconazole 2 % shampoo 1 applic topical 2XW Qty: 120 3RF Rx Instructions: Apply 5 to 10 mL to wet scalp, lather, leave on 3 to 5 minutes, and rinse; apply twice weekly for 2 to 4 weeks meclizine 25 mg tablet 25 mg PO TID PRN (Reason: dizziness) Qty: 10 0RF ondansetron 4 mg tablet,disintegrating 4 mg PO Q8H PRN (Reason: nausea and vomiting) Qty: 10 0RF PNV cmb#95-ferrous fumarate-FA [] 28 mg iron- 800 mcg Tablet 1 mg PO DAILY Referrals: Jeanmarie Goins ARNP [Primary Care Provider] - Visit Report Forms: Patient Portal/API
[2021-12-27] MEDS: BACITRACIN OINT 0.9 GM PCKT 1 APPLIC TOP (13:43)
[2021-12-27] MEDS: KETOROLAC 30 MG/ML VIAL 15 MG IM (13:44)
[2021-12-27] MEDS: DOXYCYCLINE HYCLATE 100 MG TABLET PO (13:44)
[2021-12-27 13:45] VITALS: BP 121/77; PULSE 66; O2SAT 98
[2021-12-27] MEDS: cefTRIAXone 1,000 MG VIAL 500 MG IM (13:58)
[2021-12-27 14:06] LABS: Urine N gonorrhoeae NOT DETECTED
[2021-12-27 14:13] LABS: Urine Chlamydia DETECTED
--- NOTE | 2021-12-30 10:47 | PC.NURSE ---
lab called with results, gave to dr. valentine.
[2021-12-31 02:15] LABS: Chlamydia trachomatis Positive (Negative); Mycoplasma genitalium Negative (Negative); Neisseria gonorrhoeae Negative (Negative)
[2021-12-31 09:56] LABS: HSV 1 DNA Positive (Negative); HSV 2 DNA Negative (Negative)
== END 2021-12-27 14:30 | disposition home or self-care (01) ==
PROVIDERS: Emergency Provider Nurse Practitioner Critical Care Medicine; PCP Registered Nurse Diabetes Educator
DX: R21 Rash and other nonspecific skin eruption (principal); L73.8 Other specified follicular disorders; A74.9 Chlamydial infection, unspecified; Z20.822 Contact with and (suspected) exposure to COVID-19
CPT/HCPCS: 81003; 81015; 81025; 87070; 87147; 87205; 87210; 87491; 87529; 87563; 87591; 96372; 99284; J0696; J1885

== ENCOUNTER → 2022-01-08 15:13 | Outpatient (CLI) | payer OTHER, SELFPAY ==
[2022-01-14 01:31] LABS: Chlamydia trachomatis Negative (Negative); Mycoplasma genitalium Negative (Negative); Neisseria gonorrhoeae Negative (Negative)
== END ==
PROVIDERS: PCP Registered Nurse Diabetes Educator; Visit Provider Physician Assistant Medical
DX: A74.9 Chlamydial infection, unspecified (principal); R21 Rash and other nonspecific skin eruption; N90.89 Other specified noninflammatory disorders of vulva and perineum
CPT/HCPCS: 87255; 87491; 87563; 87591

== ENCOUNTER → 2023-11-08 10:10 | Outpatient (CLI) | payer OTHER, SELFPAY ==
[2023-11-08 12:10] LABS: Hematocrit 43.1 % (36-46); Hemoglobin 14.8 g/dL (12.0-16.0); Mean Corpuscular HGB Conc 34.5 % (30-36); Mean Corpuscular Hemoglobin 30.9 PG (26-34); Mean Corpuscular Volume 89.5 fL (80-100); Platelet Count 361 X10^3/uL (150-400); Red Blood Cell Count 4.81 X10^6/uL (4.0-5.2); Red Cell Distribution Width 13.4 % (11.6-14.8); White Blood Cell Count 7.7 X10^3/uL (4.5-11.0)
[2023-11-08 12:42] LABS: Alanine Aminotransferase 32 IU/L (<35); Albumin 4.5 g/dL (3.5-5.0); Albumin Globulin Ratio 1.4 (1.0-2.8); Alkaline Phosphatase 54 U/L (38-126); Aspartate Aminotransferase 29 IU/L (14-36); BUN Creatinine Ratio 17.9 (6-22); Bilirubin Total 0.6 mg/dL (0.2-1.3); Blood Urea Nitrogen 14 mg/dL (7-17); Calcium 9.3 mg/dL (8.4-10.2); Carbon Dioxide 25 mmol/L (22-32); Chloride 105 mmol/L (98-107); Cholesterol 159 mg/dL (140-199); Estimated Glomerular Filt Rate > 60 mL/min (>60); Globulin 3.2 g/dL (1.7-4.1); Glucose 101 mg/dL (70-100); HDL Cholesterol 58 mg/dL (40-60); HEMOLYSIS < 15 (0-50); LDL Cholesterol Calculated 89 mg/dL (<100); Potassium 4.5 mmol/L (3.4-5.1); Sodium 137 mmol/L (137-145); Total Protein 7.7 g/dL (6.3-8.2); Triglycerides 58 mg/dL (35-150)
[2023-11-08 13:05] LABS: TSH w/ Reflex to FT4 1.44 uIU/mL (0.47-4.68)
== END ==
PROVIDERS: PCP Registered Nurse Diabetes Educator; Referring Provider Registered Nurse Diabetes Educator; Visit Provider Registered Nurse Diabetes Educator
DX: Z00.00 Encounter for general adult medical examination without abnormal findings (principal); E78.00 Pure hypercholesterolemia, unspecified
CPT/HCPCS: 36415; 80053; 80061; 84443; 85027

== ENCOUNTER → 2024-04-24 09:56 | Outpatient (CLI) | payer BC, SELFPAY ==
[2024-04-24 10:26] LABS: Add Manual Diff / Slide Review NO; Basophils Absolute Auto 0 /uL (0-100); Basophils Percent Auto 0.7 % (0-2); Eosinophils Absolute Auto 100 /uL (0-450); Eosinophils Percent Auto 2.2 % (2-4); Hematocrit 43.7 % (36-46); Hemoglobin 14.8 g/dL (12.0-16.0); Lymphocytes Absolute Auto 1900 /uL (1100-4500); Lymphocytes Percent Auto 29.4 % (25-40); Mean Corpuscular HGB Conc 33.9 % (30-36); Mean Corpuscular Hemoglobin 30.5 PG (26-34); Mean Corpuscular Volume 89.7 fL (80-100); Monocytes Absolute Auto 700 /uL (0-900); Monocytes Percent Auto 11.4 % (3-14); Neutrophils Absolute Auto 3500 /uL (1500-7000); Neutrophils Percent Auto 56.3 % (50-75); Platelet Count 330 X10^3/uL (150-400); Red Blood Cell Count 4.87 X10^6/uL (4.0-5.2); Red Cell Distribution Width 13.4 % (11.6-14.8); White Blood Cell Count 6.3 X10^3/uL (4.5-11.0)
== END ==
LOC: LAB 09:58
PROVIDERS: PCP Registered Nurse Diabetes Educator; Referring Provider Registered Nurse Diabetes Educator; Visit Provider Registered Nurse Diabetes Educator
DX: N92.6 Irregular menstruation, unspecified (principal)
CPT/HCPCS: 36415; 85025

== ENCOUNTER → 2024-12-27 09:58 | Outpatient (CLI) | payer BC, SELFPAY ==
[2024-12-27 10:32] LABS: Hematocrit 41.0 % (36-46); Hemoglobin 14.2 g/dL (12.0-16.0); Mean Corpuscular HGB Conc 34.6 % (30-36); Mean Corpuscular Hemoglobin 30.9 PG (26-34); Mean Corpuscular Volume 89.1 fL (80-100); Platelet Count 319 X10^3/uL (150-400)
[2024-12-27 10:46] LABS: Hemoglobin A1C% w Est Avg Glu 5.2 % (4.0-6.0)
[2024-12-27 10:47] LABS: HEMOLYSIS < 15 (0-50); Iron 125 ug/dL (37-170)
[2024-12-27 10:49] LABS: Alanine Aminotransferase 49 IU/L (<35); Albumin 4.2 g/dL (3.5-5.0); Albumin Globulin Ratio 1.4 (1.0-2.8); Alkaline Phosphatase 51 U/L (38-126); Blood Urea Nitrogen 10 mg/dL (7-17); Calcium 9.3 mg/dL (8.4-10.2); Carbon Dioxide 24 mmol/L (22-32); Chloride 105 mmol/L (98-107); Cholesterol 146 mg/dL (140-199); Estimated Glomerular Filt Rate > 60 mL/min (>60); Globulin 2.9 g/dL (1.7-4.1); Glucose 96 mg/dL (70-99); HDL Cholesterol 66 mg/dL (40-60); HEMOLYSIS < 15 (0-50); Potassium 4.0 mmol/L (3.4-5.1); Sodium 137 mmol/L (137-145); Total Protein 7.1 g/dL (6.3-8.2); Triglycerides 102 mg/dL (35-150)
[2024-12-27 10:59] LABS: Percent Iron Saturation 43 % (15-50); Total Iron Binding Capacity 289 ug/dL (265-497); Transferrin 233 mg/dL (206-381)
[2024-12-27 11:05] LABS: Free T4, Direct Thyroxine 1.10 ng/dL (0.78-2.19); Vitamin D 25 Hydroxy (D3) 31.9 ng/mL (30.0-100.0)
[2024-12-27 11:06] LABS: Follicle Stimulating Hormone 2.87 mIU/mL
[2024-12-27 11:19] LABS: Thyroid Stimulating Hormone 1.76 uIU/mL (0.47-4.68)
[2024-12-27 11:22] LABS: Estradiol, Total 581.3 pg/mL; Ferritin 84 ng/mL (6-137)
== END ==
PROVIDERS: PCP Registered Nurse Diabetes Educator; Referring Provider Registered Nurse Diabetes Educator; Visit Provider Registered Nurse Diabetes Educator
DX: Z00.00 Encounter for general adult medical examination without abnormal findings (principal); M79.10 Myalgia, unspecified site; N91.5 Oligomenorrhea, unspecified; R63.5 Abnormal weight gain; R53.83 Other fatigue
CPT/HCPCS: 36415; 80053; 80061; 82306; 82670; 82728; 83001; 83036; 83498; 83540; 83550; 84146; 84403; 84439; 84443; 85027

== ENCOUNTER → 2025-01-30 11:39 | Outpatient (CLI) | payer BC, SELFPAY ==
[2025-01-30 12:55] LABS: HCG Quantitative /Beta subunit < 2.39 mIU/mL
[2025-01-30 14:47] LABS: Follicle Stimulating Hormone 6.95 mIU/mL
[2025-01-30 15:02] LABS: Estradiol, Total 46.1 pg/mL
== END ==
PROVIDERS: PCP Registered Nurse Diabetes Educator; Referring Provider Registered Nurse Diabetes Educator; Visit Provider Registered Nurse Diabetes Educator
DX: R79.89 Other specified abnormal findings of blood chemistry (principal); E28.0 Estrogen excess; R74.8 Abnormal levels of other serum enzymes
CPT/HCPCS: 36415; 82670; 83001; 83002; 83498; 84702

== ENCOUNTER → 2025-02-07 10:46 | Outpatient (CLI) | payer BC, SELFPAY ==
--- NOTE | 2025-02-07 10:48 | DI.MG.S_ITS ---
MM screening mammo BI: 02/07/2025. BI-RADS: 1 CLINICAL: 39-year old female for bilateral screening mammogram. Tyrer-Cuzick lifetime risk of 15.4%. No personal or first-degree family history of breast cancer. PRIOR EXAMS: None. This is a baseline mammogram. MAMMOGRAPHY TECHNIQUE: 2D and 3D (tomosynthesis) digital mammographic views obtained, with additional images as needed for full coverage. Current study was also evaluated with a Computer Aided Detection (CAD) system. DENSITY C. The breasts are heterogeneously dense, which may obscure small masses. MAMMOGRAPHY FINDINGS Bilateral: No suspicious mass, asymmetry, microcalcification, or other abnormality seen. IMPRESSION: * No evidence of malignancy. RECOMMENDATIONS Bilateral * Annual screening mammography. OVERALL ASSESSMENT CATEGORY BI-RADS-1: Negative. The [employer] recommends annual screening mammography beginning at age 40 for women with average risk of breast cancer. ELECTRONICALLY SIGNED: Claire Longo M.D. on 02/07/2025 at 05:52:33 PM PT Interpreting Station ID: [id number]
--- NOTE | 2025-02-07 10:48 | DI.US.S_ITS ---
PROCEDURE: US ABDOMEN LIMITED INDICATIONS: eval, elevated liver enzymes TECHNIQUE: Real-time focused scanning was performed of the abdomen, with image documentation. COMPARISON: None. FINDINGS: Liver measures 17 cm. Overall echogenicity within normal limits comparing to the kidney. No suspicious focal lesion. Non cirrhotic liver contour by ultrasound. Unremarkable gallbladder and CBD, measuring 3 mm. Pancreas was not well seen. IMPRESSION: No acute or significant right upper quadrant sonographic abnormality. If there is further concern, consider MRI of the liver or parenchymal sampling Dictated by: Vasile Santana M.D. on 02/07/2025 at 12:09 Approved by: Vasile Santana M.D. on 02/07/2025 at 12:10
--- NOTE | 2025-02-07 10:48 | DI.US.S_ITS ---
PROCEDURE: US PELVIC COMPLETE INDICATIONS: eval, elevated estradiol levels, R/O tumor TECHNIQUE: Real-time scanning was performed of the pelvic organs, with image documentation. Additional endovaginal scanning was necessary due to incomplete visualization of the adnexal and endometrial structures by transabdominal scanning. COMPARISON: [facility], US, US PELVIC COMPLETE, 06/15/2024, 9:58. FINDINGS: Uterus: 9 x 4.5 x 5.4 cm. Retroverted positioning. Endometrium measures 7 mm, within normal limits for age. Ovaries: Nonenlarged ovaries measuring 7 mL on the right and 3 mL on the left. No significant solid or cystic lesion is identified. Small follicles are present. Other: No pathologic free abdominal or pelvic fluid. IMPRESSION: Nonenlarged ovaries with small follicles. No significant solid or cystic lesion is seen. Endometrium is within normal limits. Retroverted uterus. Dictated by: Vasile Santana M.D. on 02/07/2025 at 12:21 Approved by: Vasile Santana M.D. on 02/07/2025 at 12:23
== END ==
PROVIDERS: PCP Registered Nurse Diabetes Educator; Referring Provider Registered Nurse Diabetes Educator; Visit Provider Registered Nurse Diabetes Educator
DX: Z12.31 Encounter for screening mammogram for malignant neoplasm of breast (principal); R79.89 Other specified abnormal findings of blood chemistry; E28.0 Estrogen excess; R74.8 Abnormal levels of other serum enzymes; R92.333 Mammographic heterogeneous density, bilateral breasts
CPT/HCPCS: 76705; 76830; 76856; 77063; 77067